=== PATIENT | female | born 1955 | race Caucasian/White ===

== ENCOUNTER → 2018-05-08 12:07 | Outpatient (CLI) | payer BC, SELFPAY ==
--- NOTE | 2018-05-08 | BRBX_PTH ---
PATIENT: ERICK MACKENZIE LOC: [facility] U#:[id number] AGE/SX: 70/F ROOM: RE05/08/[address]: Dr. Javed Lewis MD : 1955 BED: DIS: SPEC #: [id number] RECD: 05/08/18 14:38 STATUS: RJ OMID #: [id number] JESSEE: 05/08/18 00:[address]: Javed Lewis DEPT: SURGICAL PATHOLOGY RECD BY: Juan Miguel Goetz Tissues: Right breast, NOS Procedures: Surgery Specimen Level IV HEADER OPERATION: Ultrasound-guided right breast biopsy PRE-OP DIAGNOSIS: Abnormal mammogram TISSUE SUBMITTED: Right breast biopsy ISCHEMIC TIME: 3 minutes MICROSCOPIC DIAGNOSIS Right breast, ultrasound-guided core biopsy: Fragments of benign breast tissue, negative for atypia or malignancy. Focal mild chronic inflammation. SJ:hermelindo 05/11/18 COMMENT Correlation with clinical, radiologic findings and appropriate follow up are necessary. Rebiopsy is suggested if clinically indicated. MICROSCOPIC DESCRIPTION Slides are reviewed. GROSS DESCRIPTION Received is one container labeled with the patient's name and not further designated. The specimen consists of two elongated fragments of regalado-yellow fibroadipose tissue that in aggregate measure 2 x 0.2 x 0.1 cm. The entire specimen is submitted in one cassette. / SJ:rg 05/08/18 TC:3 [facility]: [id number]
--- OUTSIDE RECORDS SUMMARY | 2018-06-24 06:50 | XMS RPT_ITS ---
:1955 Author Organization [facility] Care Team Providers Name Role Phone OLDERTONJA (ARMORED CAR MESSENGER) Attending Unavailable OLDER, TONJA (ARMORED CAR MESSENGER) Referring Unavailable OLDER, TONJA (ARMORED CAR MESSENGER) Referring Unavailable ELIEZERJAVED WEEKS Attending Unavailable OLDER, TONJA (ARMORED CAR MESSENGER) Referring Unavailable ELIEZER, JAVED Schneider Attending Unavailable OLDER, TONJA (ARMORED CAR MESSENGER) Referring Unavailable Eliezer, Javed Attending Unavailable Eliezer, Javed Referring Unavailable PROBLEMS PROBLEMS DATE TYPE CONDITION / CODE ATTENDING STATUS SOURCE 05/05/2018 Active Mastodynia / NA Active [facility] N64.4(ICD-10) Main [place] Repository 05/05/2018 Active Diffuse cystic NA Active [facility] mastopathy of [facility] unspecified breast Repository / N60.19(ICD-10) PROCEDURES PROCEDURES No Procedure Records FoundRESULTS RESULTS PROGRESS Observed: 05/22/2018 Status: COMPLETED Source: [place] 1:57 PM [facility] REPOSITORY HNO ID: [id number] Author: Javed Martins Service: (none) Author Type: Physician Type: Progress Notes Filed: 05/22/2018 2:00 PM Note Text: FOLLOW UP VISIT - POST RIGHT ULTRASOUND GUIDED CORE BIOPSY NAME: Vy Mackenzie [facility] NO.: [id number] DATE OF SERVICE: 05/22/2018 : 1955 REFERRING PHYSICIAN: The patient is a 63 year old female with a finding of an abnormal mammogram. The patient has noticed breast discomfort on the right side more so than the left side for the past month. The patient had a mammogram with ultrasound on May 05, 2018 which demonstrated: IMPRESSION: INCOMPLETE: NEEDS ADDITIONAL IMAGING EVALUATION The asymmetry in the right breast is indeterminate. ?An ultrasound is recommended. LIMITED ULTRASOUND OF RIGHT BREAST: 05/05/2018 RESULT: Comparison is made to exam dated: ?[facility]. Color flow and real-time ultrasound of the right breast upper inner quadrant were performed. ?Vance scale images of the real-time examination were reviewed. There is a 1 cm irregular lesion in the right breast at 3 o'clock anterior depth. ?This irregular lesion is hypoechoic with posterior acoustic shadowing. There also is a 6 mm oval lesion in the right breast at 2 o'clock posterior depth. ?This oval lesion is hypoechoic. IMPRESSION: SUSPICIOUS OF MALIGNANCY The 1 cm irregular lesion in the right breast at 3 o'clock anterior depth is at a moderate suspicion for malignancy. ?An ultrasound guided biopsy is recommended. The 6 mm oval lesion in the right breast at 2 o'clock posterior depth is at a low suspicion for malignancy. ?An ultrasound guided biopsy is recommended. The patient denies a history of breast masses. She does not perform a self breast exam routinely. She notes no skin changes. She denies nipple discharge. She notes no axillary masses. She notes no first-degree family history of breast problems but does have a grandmother diagnosed with breast cancer. She notes no significant breast trauma or breast difficulties in the past. The patient has had 3 pregnancies. Her last mammogram was 2014. I performed a right side ultrasound guided core biopsy and aspiration of a benign-appearing breast cyst for her abnormal mammogram on May 07, 2018. The pathology returned as: MICROSCOPIC DIAGNOSIS Right breast, ultrasound-guided core biopsy: Fragments of benign breast tissue, negative for atypia or malignancy. Focal mild chronic inflammation. The patient notes slight bruising since the procedure. VITALS: Blood pressure 150/80, pulse 85, last menstrual period 07/20/2006, SpO2 97 %. On examination, the right side breast biopsy site is clean, dry, and intact. There is resolving bruising of the site. Assessment IMPRESSION: status post ultrasound guided core biopsy for right side breast asymmetry and shadowing. PLAN: If Vy notes any problems, she should contact me immediately. I reminded her about the importance of self - breast exam. I recommend she perform monthly self breast exams. If any palpable abnormalities, change in breast exam, or any difficulties are noted, she is to contact my office immediately. I generally recommend follow up unilateral mammogram and ultrasound 6 months following biopsy. Diagnoses: (R92.8) Abnormal finding on breast imaging (primary encounter diagnosis) Return to Clinic: The patient is instructed to follow- up with me in 6 months with mammogram and ultrasound prior to office visit. Javed Martins MD CNOV Observed: 05/22/2018 Status: COMPLETED Source: [place] 12:50 PM [facility] REPOSITORY Office Visit (GENSWS) VY MACKENZIE ([id number]) 1955 F Date Time Provider Department 05/22/18 12:50 PM JAVED MARTINS During your visit today, we recorded the following information about you: Pulse Blood pressure 85/minute 150/80 Javed Martins MD 05/22/2018 2:00 PM Signed FOLLOW UP VISIT - POST RIGHT ULTRASOUND GUIDED CORE BIOPSY NAME: Vy May Charles CLINIC NO.: [id number] DATE OF SERVICE: 05/22/2018 : 1955 REFERRING PHYSICIAN: The patient is a 63 year old female with a finding of an abnormal mammogram. The patient has noticed breast discomfort on the right side more so than the left side for the past month. The patient had a mammogram with ultrasound on May 05, 2018 which demonstrated: IMPRESSION: INCOMPLETE: NEEDS ADDITIONAL IMAGING EVALUATION The asymmetry in the right breast is indeterminate. ?An ultrasound is recommended. LIMITED ULTRASOUND OF RIGHT BREAST: 05/05/2018 RESULT: Comparison is made to exam dated: ?02[facility]. Color flow and real-time ultrasound of the right breast upper inner quadrant were performed. ?Vance scale images of the real-time examination were reviewed. There is a 1 cm irregular lesion in the right breast at 3 o'clock anterior depth. ?This irregular lesion is hypoechoic with posterior acoustic shadowing. There also is a 6 mm oval lesion in the right breast at 2 o'clock posterior depth. ?This oval lesion is hypoechoic. IMPRESSION: SUSPICIOUS OF MALIGNANCY The 1 cm irregular lesion in the right breast at 3 o'clock anterior depth is at a moderate suspicion for malignancy. ?An ultrasound guided biopsy is recommended. The 6 mm oval lesion in the right breast at 2 o'clock posterior depth is at a low suspicion for malignancy. ?An ultrasound guided biopsy is recommended. The patient denies a history of breast masses. She does not perform a self breast exam routinely. She notes no skin changes. She denies nipple discharge. She notes no axillary masses. She notes no first- degree family history of breast problems but does have a grandmother diagnosed with breast cancer. She notes no significant breast trauma or breast difficulties in the past. The patient has had 3 pregnancies. Her last mammogram was 2014. I performed a right side ultrasound guided core biopsy and aspiration of a benign-appearing breast cyst for her abnormal mammogram on May 07, 2018. The pathology returned as: MICROSCOPIC DIAGNOSIS Right breast, ultrasound-guided core biopsy: Fragments of benign breast tissue, negative for atypia or malignancy. Focal mild chronic inflammation. The patient notes slight bruising since the procedure. VITALS: Blood pressure 150/80, pulse 85, last menstrual period 07/20/2006, SpO2 97 %. On examination, the right side breast biopsy site is clean, dry, and intact. There is resolving bruising of the site. Assessment IMPRESSION: status post ultrasound guided core biopsy for right side breast asymmetry and shadowing. PLAN: If Vy notes any problems, she should contact me immediately. I reminded her about the importance of self - breast exam. I recommend she perform monthly self breast exams. If any palpable abnormalities, change in breast exam, or any difficulties are noted, she is to contact my office immediately. I generally recommend follow up unilateral mammogram and ultrasound 6 months following biopsy. Diagnoses: (R92.8) Abnormal finding on breast imaging (primary encounter diagnosis) Return to Clinic: The patient is instructed to follow- up with me in 6 months with mammogram and ultrasound prior to office visit. Javed Martins MD Referring Provider: TONJA PANDEY ([facility]) [[id number]] Allergies As of Date: 05/22/2018 Noted Allergy Reaction NICKEL 12/26/2015 2 - Rash Date Reviewed: 05/22/2018 Reviewed by: Javed Martins - Fully Assessed Reason for Visit: Post Op [174] Primary Visit Diagnosis:Abnormal finding on breast imaging [R92.8] Order(s):[facility] [[id number]] Order #: [id number] FUTURE US BREAST LTD RT [[id number]] Order #: [id number] FUTURE Prescriptions as of 05/22/2018 Sig: ASCORBIC ACID (VITAMIN C) 500* Take 1 tablet by mouth twice * DOCUSATE SODIUM 100 MG CAPSULE Take 1 capsule by mouth twice* ENOXAPARIN 40 MG/0.4 ML SUBCU* Inject 0.4 mL subcutaneously * FERROUS SULFATE 325 MG (65 MG* Take 1 tablet by mouth twice * * MULTIVITAMIN TABLET Take one(1) tablet daily. 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] INVALID FOR* Primary osteoarthritis of left hip [M16.12] INVALID FOR*03/21/2016 Follow-up and Disposition History Recorded Encounter Status:Closed by JAVED MARTINS MD on 05/22/18 PROGRESS Observed: 05/09/2018 Status: COMPLETED Source: [place] 10:09 AM [facility] [place] REPOSITORY [facility] ID: [id number] Author: Javed Martins Service: (none) Author Type: Physician Type: Progress Notes Filed: 05/09/2018 10:18 AM Note Text: HISTORY AND PHYSICAL - BREAST COMPLAINT Vy May Pack 1955 REFERRING PHYSICIAN: Tonja Pandey (Director Private), BONDING MACHINE TENDER.* CHIEF COMPLAINT: Right breast abnormal imaging HPI: The patient is a 63 year old female with a finding of an abnormal mammogram. The patient has noticed breast discomfort on the right side more so than the left side for the past month. The patient had a mammogram with ultrasound on May 05, 2018 which demonstrated: IMPRESSION: INCOMPLETE: NEEDS ADDITIONAL IMAGING EVALUATION The asymmetry in the right breast is indeterminate. ?An ultrasound is recommended. LIMITED ULTRASOUND OF RIGHT BREAST: 05/05/2018 RESULT: Comparison is made to exam dated: ?02/15/2015 [facility]. Color flow and real-time ultrasound of the right breast upper inner quadrant were performed. ?Vance scale images of the real-time examination were reviewed. There is a 1 cm irregular lesion in the right breast at 3 o'clock anterior depth. ?This irregular lesion is hypoechoic with posterior acoustic shadowing. There also is a 6 mm oval lesion in the right breast at 2 o'clock posterior depth. ?This oval lesion is hypoechoic. IMPRESSION: SUSPICIOUS OF MALIGNANCY The 1 cm irregular lesion in the right breast at 3 o'clock anterior depth is at a moderate suspicion for malignancy. ?An ultrasound guided biopsy is recommended. The 6 mm oval lesion in the right breast at 2 o'clock posterior depth is at a low suspicion for malignancy. ?An ultrasound guided biopsy is recommended. The patient denies a history of breast masses. She does not perform a self breast exam routinely. She notes no skin changes. She denies nipple discharge. She notes no axillary masses. She notes no first-degree family history of breast problems but does have a grandmother diagnosed with breast cancer. She notes no significant breast trauma or breast difficulties in the past. The patient has had 3 pregnancies. Her last mammogram was 2014. The patient is being seen by me today at the request of Tonja Pandey (Director Private), BONDING MACHINE TENDER.* my opinion and advice regarding right breast pain. PAST MEDICAL HISTORY Diagnosis Date - Menopausal and postmenopausal disorder 2007 PAST SURGICAL HISTORY Procedure Laterality Date - ASPIRATION BREAST CYST 09/16/05 U/S guided bilat breast cyst asp x 6 - BREAST BIOPSY NEEDLE LEFT 1996 L BREAST CYST - COLONOSCOP W/ OR W/O [facility] SPEC 10/10/14 polyp was not adenomatous - LIGATE FALLOPIAN TUBE Tubal ligation - TOTAL HIP REPLACEMENT Left 02/19/16 Hip replacement, total Current Outpatient Prescriptions: ascorbic acid, vitamin C, (VITAMIN C) 500 mg tablet Take 1 tablet by mouth twice daily with meals. Disp: 60 tablet Rfl: 0 docusate sodium (COLACE) 100 mg capsule Take 1 capsule by mouth twice daily. Disp: 60 capsule Rfl: 0 enoxaparin (LOVENOX) 40 mg/0.4 mL syrg Inject 0.4 mL subcutaneously q 24 HR. Disp: 12 Syringe Rfl: 0 ferrous sulfate 325 mg (65 mg iron) tablet Take 1 tablet by mouth twice daily with meals. Disp: 60 tablet Rfl: 0 MULTIVITAMIN TAB Take one(1) tablet daily. Disp: Rfl: 0 oxyCODONE immediate release (PERCOLONE) 5 mg immediate release tablet Take 1 tablet by mouth every 4 hours as needed for Pain. Disp: 90 tablet Rfl: 0 No current facility-administered medications for this visit. ALLERGIES: Nickel PERSONAL HISTORY: Social History Marital status: Spouse name: zaida Years of education: Number of children: 3 Social History Main Topics Smoking status: Former Smoker Packs/day: 0.25 Years: 35.00 Quit date: 05/07/2012 Smokeless tobacco: Never Used Alcohol use: No Drug use: No Sexual activity: Yes control/protection: Surgical Comment: BTL FAMILY HISTORY: FAMILY HISTORY Problem Relation Age of Onset - other (LUNG CANCER) Father - other (LYMPHOMA) Brother DOING WELL REVIEW OF SYMPTOMS: The review of systems data was entered by the nurse and reviewed by me Nursing Notes: Salomon Banerjee LPN 05/07/2018 10:22 AM Signed REVIEW OF SYSTEMS: General: The patient notes fatigue, denies weight loss, denies weight gain, denies feeling hot, and denies feelings of cold. Eyes: The patient denies glaucoma, denies eye injury/surgery, does not wear glasses or contacts. Ear/Nose/Throat: The patient denies allergies, denies hayfever, denies ear infections, and denies bloody noses. Cardiovascular: The patient denies chest pain, denies heart disease, denies high blood pressure,denies cardiac stent, denies prior heart attack, denies irregular heart beat, denies high cholesterol, denies poor circulation, denies heart failure, other cardiac issues, denies claudication, denies cold feet, denies peripheral arterial stent. Respiratory: The patient denies tuberculosis, denies pneumonia, denies frequent cough, denies pulmonary embolism, denies shortness of breath, and denies coughing up blood. Gastrointestinal: The patient denies difficulty swallowing, denies acid reflux, denies ulcers, denies vomiting, denies jaundice/hepatitis, denies gallbladder problems, denies black or tarry stools, denies hemorrhoids, denies bleeding from rectum, denies diverticulitis, denies constipation, denies diarrhea, denies loss of stool control, and denies hernias. Kidney/Bladder: The patient denies kidney stones, denies urine infections, and denies bloody urine. Skin: The patient denies a history of skin cancer, denies bleeding/changing moles, and denies a history of skin rash. Neurologic: The patient denies a history of epilepsy/convulsions, denies headaches, denies head/spinal injuries, and denies stroke/TIA. Psychiatric: The patient denies psychiatric medications, denies depression, and denies voices, denies substance abuse. Endocrine: The patient denies thyroid disorders, denies diabetes, and denies hormonal problems. Hematologic: The patient denies a history of bruising, denies bleeding, and denies anemia, denies blood clots. Infections: The patient denies a history of measles and mumps, denies rheumatic fever, and denies sexually transmitted diseases. Musculoskeletal: The patient denies back pain/injury, denies back problems, denies sciatica, denies knee/foot trouble, denies arthritis, or denies gout. When was patient's last Mammogram screening? 05/12 Last Colonoscopy: 10/07 Salomon Mitchell LPN 05/07/2018 11:16 AM Signed INFORMED CONSENT Vy Mackenzie Medical Record: [id number] Procedure:us guided right breast biopsy The risks, benefits and anticipated outcomes of the procedure, the risks and benefits of the alternatives to the procedure and the roles and tasks of the personnel to be involved were discussed with the patient and the patient consents to the procedure and agrees to proceed. I verify that I personally obtained yV Mackenzie's consent. Snow Mitchell LPN May 07, 2018 11:08 AM Dept of GENERAL SURGERY UN[employer]ERSAL PROTOCOL / SAFETY CHECKLIST Procedure to be performed: us guided right breast biopsy Sign in Communication: Completed Time Out: Team Confirms the Correct Patient, Correct Procedure, Correct Site and Site Marking, Correct Position (if applicable), Prep and Dry Time (if applicable). Time: 1109 am Affirmation of Time Out: YES Sign Out Discussion: Completed Snow Mitchell LPN PHYSICAL EXAMINATION: General: The patient is 63 year old female, well nourished, well hydrated in no acute distress. The patient is oriented to time, place, and person. VITALS: Blood pressure 146/78, pulse 111, temperature 36.8 ?C (98.2 ?F), temperature source Temporal Artery, height 165.1 cm (5' 5), weight 76.7 kg (169 lb 3.2 oz), last menstrual period 07/20/2006, SpO2 99 %. Body mass index is 28.16 kg/m?. HEENT: Normal cephalic, ataumatic, pupils are equally round, sclera are anicteric, mucous membranes are moist, oropharynx is clear. Neck has no masses, asymmetry or lymphadenopathy. Thyroid is unremarkable. Respiratory: Clear to auscultation and percussion. Normal respiratory excursion and pattern. Cardiac: Examination is regular rate and rhythm. Abdominal exam: Soft, nontender, with no palpable masses. No hepatosplenomegaly. No palpable hernias. Rectal exam: exam deferred Extremities: no clubbing, cyanosis or edema. No adenopathy. Breast: Visual inspection reveals no retractions, nipple inversion, or skin changes. Palpation of the right breast reveals no dominant or suspicious masses, but multiple benign-feeling nodules. Palpation of the left breast reveals no dominant or suspicious masses, but multiple benign-feeling nodules. Axillary exam demonstrates no suspicious masses in either the left or right axilla. There is no nipple discharge expressed from either the left or right breast. LABORATORY VALUES: As Noted RADIOLOGIC STUDIES: As Noted Intraoffice ultrasound was obtained. This demonstrated lesser shadowing than noted on the official ultrasound but this was felt to be the same area of abnormality. The deeper structure was felt to be likely a small cyst. PROCEDURE: Ultrasound Guided Cyst Aspiration The risks, benefits and anticipated outcomes of the procedure, the risks and benefits of the alternatives to the procedure, and the roles and tasks of the personnel to be involved, were discussed with the patient, and the patient consents to the procedure and agrees to proceed. After explaining the procedure and consent was obtained, Vy was positioned. The abnormality in the Right breast was identified by ultrasound. Local anesthetic was injected the skin. Am 18 gauge needle was inserted under ultrasound guidance. The cyst was aspirated completely. This fluid was not sent for cytology. A bandage was applied to the needle aspiration site. Vy tolerated the procedure well. PROCEDURE: Ultrasound Guided Core Breast Biopsy The risks, benefits and anticipated outcomes of the procedure, the risks and benefits of the alternatives to the procedure, and the roles and tasks of the personnel to be involved, were discussed with the patient, and the patient consents to the procedure and agrees to proceed. After explaining the procedure and consent was obtained,Vy was positioned. The abnormality in the right breast was identified by ultrasound. Lidocaine was injected in to the skin and a small stab incision was made. The bard core biopsy needle was inserted into the stab incision and advanced. Multiple core were obtained with ultrasound demonstrating targeting into the lesion and then below the lesion in the shadowing area. A marker clip was then placed via ultrasound guidance. Steristrips were applied to the incision. A bandage was applied to the needle site. Vy tolerated the procedure well. Assessment IMPRESSION: Status post benign-appearing cyst aspiration and core biopsy of right breast abnormality PLAN: The patient is to return for results of her ultrasound guided breast biopsy. If the patient notes bleeding from the biopsy site, she is to place pressure on the site. Discomfort from brusing can be managed with an ice pack or non steroidal analegics. Diagnoses: (R92.8) Abnormal finding on breast imaging (primary encounter diagnosis) My findings have been communicated to [facility] via shared medical record. This note will be forwarded to No primary care provider on file.. Return to Clinic: The patient is instructed to follow-up with me for pathology results. I understand the patient will be traveling so we will attempt to communicate the results via phone. Javed Martins MD BREAST BIOPSY Observed: 05/08/2018 Status: F Source: [place] 12:00 AM [facility] REPOSITORY Patient: VY MACKENZIE : 1955 (63/F) Acct Num: [id number] Phys: Javed Martins MD Unit Num: [id number] Loc: LABSPEC Specimen: [id number] Received: 05/08/18 - 1438 Spec Type: BREAST BX TISSUES 1 TISSUES: Right breast, NOS COMMENT Correlation with clinical, radiologic findings and appropriate follow up are necessary. Rebiopsy is suggested if clinically indicated. GROSS DESCRIPTION Received is one container labeled with the patient's name and not further designated. The specimen consists of two elongated fragments of regalado-yellow fibroadipose tissue that in aggregate measure 2 x 0.2 x 0.1 cm. The entire specimen is submitted in one cassette. / KARIN:hermelindo 05/08/18 TC:3 CPT: 00582 HEADER OPERATION: Ultrasound-guided right breast biopsy PRE-OP DIAGNOSIS: Abnormal mammogram TISSUE SUBMITTED: Right breast biopsy ISCHEMIC TIME: 3 minutes MICROSCOPIC DESCRIPTION Slides are reviewed. MICROSCOPIC DIAGNOSIS Right breast, ultrasound-guided core biopsy: Fragments of benign breast tissue, negative for atypia or malignancy. Focal mild chronic inflammation. SJ:hermelindo 05/11/18 Signed Ed Whitlock 05/11/18 <signature on file> Performed By: #### PBRBX #### [facility] [address] [place], [address] CNOV Observed: 05/07/2018 Status: COMPLETED Source: [place] 10:00 AM [facility] REPOSITORY Office Visit (GENSWS) VY MACKENZIE ([id number]) 1955 F Date Time Provider Department 05/07/18 10:00 AM JAVED MARTINS During your visit today, we recorded the following information about you: Temperature Pulse Blood pressure Weight 98.2 degrees 111/minute 146/78 76.7 kg Height 1.651 m Salomon Lavonne [facility] TECHNICIAN 05/07/2018 10:22 AM Signed REVIEW OF SYSTEMS: General: The patient notes fatigue, denies weight loss, denies weight gain, denies feeling hot, and denies feelings of cold. Eyes: The patient denies glaucoma, denies eye injury/surgery, does not wear glasses or contacts. Ear/Nose/Throat: The patient denies allergies, denies hayfever, denies ear infections, and denies bloody noses. Cardiovascular: The patient denies chest pain, denies heart disease, denies high blood pressure,denies cardiac stent, denies prior heart attack, denies irregular heart beat, denies high cholesterol, denies poor circulation, denies heart failure, other cardiac issues, denies claudication, denies cold feet, denies peripheral arterial stent. Respiratory: The patient denies tuberculosis, denies pneumonia, denies frequent cough, denies pulmonary embolism, denies shortness of breath, and denies coughing up blood. Gastrointestinal: The patient denies difficulty swallowing, denies acid reflux, denies ulcers, denies vomiting, denies jaundice/hepatitis, denies gallbladder problems, denies black or tarry stools, denies hemorrhoids, denies bleeding from rectum, denies diverticulitis, denies constipation, denies diarrhea, denies loss of stool control, and denies hernias. Kidney/Bladder: The patient denies kidney stones, denies urine infections, and denies bloody urine. Skin: The patient denies a history of skin cancer, denies bleeding/changing moles, and denies a history of skin rash. Neurologic: The patient denies a history of epilepsy/convulsions, denies headaches, denies head/spinal injuries, and denies stroke/TIA. Psychiatric: The patient denies psychiatric medications, denies depression, and denies voices, denies substance abuse. Endocrine: The patient denies thyroid disorders, denies diabetes, and denies hormonal problems. Hematologic: The patient denies a history of bruising, denies bleeding, and denies anemia, denies blood clots. Infections: The patient denies a history of measles and mumps, denies rheumatic fever, and denies sexually transmitted diseases. Musculoskeletal: The patient denies back pain/injury, denies back problems, denies sciatica, denies knee/foot trouble, denies arthritis, or denies gout. When was patient's last Mammogram screening? 05/12 Last Colonoscopy: 10/07 Salomon Mitchell LPN 05/07/2018 11:16 AM Signed INFORMED CONSENT Vy Mackenzie Medical Record: [id number] Procedure:us guided right breast biopsy The risks, benefits and anticipated outcomes of the procedure, the risks and benefits of the alternatives to the procedure and the roles and tasks of the personnel to be involved were discussed with the patient and the patient consents to the procedure and agrees to proceed. I verify that I personally obtained Vy Mackenzie's consent. Snow Mitchell LPN May 07, 2018 11:08 AM Dept of GENERAL SURGERY UNIVERSAL PROTOCOL / SAFETY CHECKLIST Procedure to be performed: us guided right breast biopsy Sign in Communication: Completed Time Out: Team Confirms the Correct Patient, Correct Procedure, Correct Site and Site Marking, Correct Position (if applicable), Prep and Dry Time (if applicable). Time: 1109 am Affirmation of Time Out: YES Sign Out Discussion: Completed Snow Mitchell LPN 05/07/2018 11:13 AM Signed The following instructions are important for you related to your office visit today with the [facility]. Instructions After OFFICE BASED BREAST BIOPSY Please do not take aspirin or other blood thinners for the next few days. After the procedure, Steri-Strips and a dressing will be placed on your small incision. The dressing may be removed in two to three days after the procedure. The Steri-Strips should be left in place until they fall off. If you have bleeding from the biopsy site, hold pressure with a clean gauze. If the bleeding continues, contact our office immediately. I recommend taking Advil or Tylenol for the discomfort. You should wear a comfortable but somewhat tight fitting bra. If you have significant bruising, an ice pack may improve your discomfort. Please make an appointment to return to our office after your trip. If you note any additional difficulties, questions, or concerns, you should contact our office immediately @ [phone] and ask to be transferred to the General Surgery department. Javed Martins MD 05/09/2018 10:18 AM Signed HISTORY AND PHYSICAL - BREAST COMPLAINT Vy Mackenzie 1955 REFERRING PHYSICIAN: Tonja Pandey (Director Private), KATARINA.* CHIEF COMPLAINT: Right breast abnormal imaging HPI: The patient is a 63 year old female with a finding of an abnormal mammogram. The patient has noticed breast discomfort on the right side more so than the left side for the past month. The patient had a mammogram with ultrasound on May 05, 2018 which demonstrated: IMPRESSION: INCOMPLETE: NEEDS ADDITIONAL IMAGING EVALUATION The asymmetry in the right breast is indeterminate. ?An ultrasound is recommended. LIMITED ULTRASOUND OF RIGHT BREAST: 05/05/2018 RESULT: Comparison is made to exam dated: ?02[facility]15/[facility]. Color flow and real-time ultrasound of the right breast upper inner quadrant were performed. ?Vance scale images of the real-time examination were reviewed. There is a 1 cm irregular lesion in the right breast at 3 o'clock anterior depth. ?This irregular lesion is hypoechoic with posterior acoustic shadowing. There also is a 6 mm oval lesion in the right breast at 2 o'clock posterior depth. ?This oval lesion is hypoechoic. IMPRESSION: SUSPICIOUS OF MALIGNANCY The 1 cm irregular lesion in the right breast at 3 o'clock anterior depth is at a moderate suspicion for malignancy. ?An ultrasound guided biopsy is recommended. The 6 mm oval lesion in the right breast at 2 o'clock posterior depth is at a low suspicion for malignancy. ?An ultrasound guided biopsy is recommended. The patient denies a history of breast masses. She does not perform a self breast exam routinely. She notes no skin changes. She denies nipple discharge. She notes no axillary masses. She notes no first- degree family history of breast problems but does have a grandmother diagnosed with breast cancer. She notes no significant breast trauma or breast difficulties in the past. The patient has had 3 pregnancies. Her last mammogram was 2014. The patient is being seen by me today at the request of Tonja Pandey (Irineo), KATARINA.* my opinion and advice regarding right breast pain. PAST MEDICAL HISTORY Diagnosis Date - Menopausal and postmenopausal disorder 2007 PAST SURGICAL HISTORY Procedure Laterality Date - ASPIRATION BREAST CYST 09/16/05 U/S guided bilat breast cyst asp x 6 - BREAST BIOPSY NEEDLE LEFT 1996 L BREAST CYST - COLONOSCOP W/ OR W/O [facility] SPEC 10/10/14 polyp was not adenomatous - LIGATE FALLOPIAN TUBE Tubal ligation - TOTAL HIP REPLACEMENT Left 02/19/16 Hip replacement, total Current Outpatient Prescriptions: ascorbic acid, vitamin C, (VITAMIN C) 500 mg tablet Take 1 tablet by mouth twice daily with meals. Disp: 60 tablet Rfl: 0 docusate sodium (COLACE) 100 mg capsule Take 1 capsule by mouth twice daily. Disp: 60 capsule Rfl: 0 enoxaparin (LOVENOX) 40 mg/0.4 mL syrg Inject 0.4 mL subcutaneously q 24 HR. Disp: 12 Syringe Rfl: 0 ferrous sulfate 325 mg (65 mg iron) tablet Take 1 tablet by mouth twice daily with meals. Disp: 60 tablet Rfl: 0 MULTIVITAMIN TAB Take one(1) tablet daily. Disp: Rfl: 0 oxyCODONE immediate release (PERCOLONE) 5 mg immediate release tablet Take 1 tablet by mouth every 4 hours as needed for Pain. Disp: 90 tablet Rfl: 0 No current facility-administered medications for this visit. ALLERGIES: Nickel PERSONAL HISTORY: Social History Marital status: Spouse name: zaida Years of education: Number of children: 3 Social History Main Topics Smoking status: Former Smoker Packs/day: 0.25 Years: 35.00 Quit date: 05/07/2012 Smokeless tobacco: Never Used Alcohol use: No Drug use: No Sexual activity: Yes control/protection: Surgical Comment: BTL FAMILY HISTORY: FAMILY HISTORY Problem Relation Age of Onset - other (LUNG CANCER) Father - other (LYMPHOMA) Brother DOING WELL REVIEW OF SYMPTOMS: The review of systems data was entered by the nurse and reviewed by me Nursing Notes: Salomon Lavonne WYNN 05/07/2018 10:22 AM Signed REVIEW OF SYSTEMS: General: The patient notes fatigue, denies weight loss, denies weight gain, denies feeling hot, and denies feelings of cold. Eyes: The patient denies glaucoma, denies eye injury/surgery, does not wear glasses or contacts. Ear/Nose/Throat: The patient denies allergies, denies hayfever, denies ear infections, and denies bloody noses. Cardiovascular: The patient denies chest pain, denies heart disease, denies high blood pressure,denies cardiac stent, denies prior heart attack, denies irregular heart beat, denies high cholesterol, denies poor circulation, denies heart failure, other cardiac issues, denies claudication, denies cold feet, denies peripheral arterial stent. Respiratory: The patient denies tuberculosis, denies pneumonia, denies frequent cough, denies pulmonary embolism, denies shortness of breath, and denies coughing up blood. Gastrointestinal: The patient denies difficulty swallowing, denies acid reflux, denies ulcers, denies vomiting, denies jaundice/hepatitis, denies gallbladder problems, denies black or tarry stools, denies hemorrhoids, denies bleeding from rectum, denies diverticulitis, denies constipation, denies diarrhea, denies loss of stool control, and denies hernias. Kidney/Bladder: The patient denies kidney stones, denies urine infections, and denies bloody urine. Skin: The patient denies a history of skin cancer, denies bleeding/changing moles, and denies a history of skin rash. Neurologic: The patient denies a history of epilepsy/convulsions, denies headaches, denies head/spinal injuries, and denies stroke/TIA. Psychiatric: The patient denies psychiatric medications, denies depression, and denies voices, denies substance abuse. Endocrine: The patient denies thyroid disorders, denies diabetes, and denies hormonal problems. Hematologic: The patient denies a history of bruising, denies bleeding, and denies anemia, denies blood clots. Infections: The patient denies a history of measles and mumps, denies rheumatic fever, and denies sexually transmitted diseases. Musculoskeletal: The patient denies back pain/injury, denies back problems, denies sciatica, denies knee/foot trouble, denies arthritis, or denies gout. When was patient's last Mammogram screening? 05/12 Last Colonoscopy: 10/07 Salomon Mitchell LPN 05/07/2018 11:16 AM Signed INFORMED CONSENT Vy Mackenzie Medical Record: [id number] Procedure:us guided right breast biopsy The risks, benefits and anticipated outcomes of the procedure, the risks and benefits of the alternatives to the procedure and the roles and tasks of the personnel to be involved were discussed with the patient and the patient consents to the procedure and agrees to proceed. I verify that I personally obtained Vy Mackenzie's consent. Snow Mitchell LPN May 07, 2018 11:08 AM Dept of GENERAL SURGERY UNIVERSAL PROTOCOL / SAFETY CHECKLIST Procedure to be performed: us guided right breast biopsy Sign in Communication: Completed Time Out: Team Confirms the Correct Patient, Correct Procedure, Correct Site and Site Marking, Correct Position (if applicable), Prep and Dry Time (if applicable). Time: 1109 am Affirmation of Time Out: YES Sign Out Discussion: Completed Snow Mitchell LPN PHYSICAL EXAMINATION: General: The patient is 63 year old female, well nourished, well hydrated in no acute distress. The patient is oriented to time, place, and person. VITALS: Blood pressure 146/78, pulse 111, temperature 36.8 ?C (98.2 ?F), temperature source Temporal Artery, height 165.1 cm (5' 5), weight 76.7 kg (169 lb 3.2 oz), last menstrual period 07/20/2006, SpO2 99 %. Body mass index is 28.16 kg/m?. HEENT: Normal cephalic, ataumatic, pupils are equally round, sclera are anicteric, mucous membranes are moist, oropharynx is clear. Neck has no masses, asymmetry or lymphadenopathy. Thyroid is unremarkable. Respiratory: Clear to auscultation and percussion. Normal respiratory excursion and pattern. Cardiac: Examination is regular rate and rhythm. Abdominal exam: Soft, nontender, with no palpable masses. No hepatosplenomegaly. No palpable hernias. Rectal exam: exam deferred Extremities: no clubbing, cyanosis or edema. No adenopathy. Breast: Visual inspection reveals no retractions, nipple inversion, or skin changes. Palpation of the right breast reveals no dominant or suspicious masses, but multiple benign-feeling nodules. Palpation of the left breast reveals no dominant or suspicious masses, but multiple benign- feeling nodules. Axillary exam demonstrates no suspicious masses in either the left or right axilla. There is no nipple discharge expressed from either the left or right breast. LABORATORY VALUES: As Noted RADIOLOGIC STUDIES: As Noted Intraoffice ultrasound was obtained. This demonstrated lesser shadowing than noted on the official ultrasound but this was felt to be the same area of abnormality. The deeper structure was felt to be likely a small cyst. PROCEDURE: Ultrasound Guided Cyst Aspiration The risks, benefits and anticipated outcomes of the procedure, the risks and benefits of the alternatives to the procedure, and the roles and tasks of the personnel to be involved, were discussed with the patient, and the patient consents to the procedure and agrees to proceed. After explaining the procedure and consent was obtained, Vy was positioned. The abnormality in the Right breast was identified by ultrasound. Local anesthetic was injected the skin. Am 18 gauge needle was inserted under ultrasound guidance. The cyst was aspirated completely. This fluid was not sent for cytology. A bandage was applied to the needle aspiration site. Vy tolerated the procedure well. PROCEDURE: Ultrasound Guided Core Breast Biopsy The risks, benefits and anticipated outcomes of the procedure, the risks and benefits of the alternatives to the procedure, and the roles and tasks of the personnel to be involved, were discussed with the patient, and the patient consents to the procedure and agrees to proceed. After explaining the procedure and consent was obtained,Vy was positioned. The abnormality in the right breast was identified by ultrasound. Lidocaine was injected in to the skin and a small stab incision was made. The bard core biopsy needle was inserted into the stab incision and advanced. Multiple core were obtained with ultrasound demonstrating targeting into the lesion and then below the lesion in the shadowing area. A marker clip was then placed via ultrasound guidance. Steristrips were applied to the incision. A bandage was applied to the needle site. Vy tolerated the procedure well. Assessment IMPRESSION: Status post benign-appearing cyst aspiration and core biopsy of right breast abnormality PLAN: The patient is to return for results of her ultrasound guided breast biopsy. If the patient notes bleeding from the biopsy site, she is to place pressure on the site. Discomfort from brusing can be managed with an ice pack or non steroidal analegics. Diagnoses: (R92.8) Abnormal finding on breast imaging (primary encounter diagnosis) My findings have been communicated to Deidra via shared medical record. This note will be forwarded to No primary care provider on file.. Return to Clinic: The patient is instructed to follow-up with me for pathology results. I understand the patient will be traveling so we will attempt to communicate the results via phone. Javed Martins MD Referring Provider: TONJA PANDEY ([facility]) [[id number]] Allergies As of Date: 05/07/2018 Noted Allergy Reaction NICKEL 12/26/2015 2 - Rash Date Reviewed: 05/07/2018 Reviewed by: Salomon Banerjee LPN - Fully Assessed Reason for Visit: Consult [173] Cmt: Consult Abn mammo Primary Visit Diagnosis:Abnormal finding on breast imaging [R92.8] Prescriptions as of 05/07/2018 Sig: ASCORBIC ACID (VITAMIN C) 500* Take 1 tablet by mouth twice * DOCUSATE SODIUM 100 MG CAPSULE Take 1 capsule by mouth twice* ENOXAPARIN 40 MG/0.4 ML SUBCU* Inject 0.4 mL subcutaneously * FERROUS SULFATE 325 MG (65 MG* Take 1 tablet by mouth twice * * MULTIVITAMIN TABLET Take one(1) tablet daily. 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 Instructions After OFFICE BASED BREAST BIOPSY Please do not take aspirin or other blood thinners for the next few days. After the procedure, Steri-Strips and a dressing will be placed on your small incision. The dressing may be removed in two to three days after the procedure. The Steri-Strips should be left in place until they fall off. If you have bleeding from the biopsy site, hold pressure with a clean gauze. If the bleeding continues, contact our office immediately. I recommend taking Advil or Tylenol for the discomfort. You should wear a comfortable but somewhat tight fitting bra. If you have significant bruising, an ice pack may improve your discomfort. Please make an appointment to return to our office after your trip. If you note any additional difficulties, questions, or concerns, you should contact our office immediately @ [phone] and ask to be transferred to the General Surgery department. Visit Notes: >> Salomon Banerjee LPN Sabi May 07, 2018 10:20 AM Status: Signed REVIEW OF SYSTEMS: General: The patient notes fatigue, denies weight loss, denies weight gain, denies feeling hot, and denies feelings of cold. Eyes: The patient denies glaucoma, denies eye injury/surgery, does not wear glasses or contacts. Ear/Nose/Throat: The patient denies allergies, denies hayfever, denies ear infections, and denies bloody noses. Cardiovascular: The patient denies chest pain, denies heart disease, denies high blood pressure,denies cardiac stent, denies prior heart attack, denies irregular heart beat, denies high cholesterol, denies poor circulation, denies heart failure, other cardiac issues, denies claudication, denies cold feet, denies peripheral arterial stent. Respiratory: The patient denies tuberculosis, denies pneumonia, denies frequent cough, denies pulmonary embolism, denies shortness of breath, and denies coughing up blood. Gastrointestinal: The patient denies difficulty swallowing, denies acid reflux, denies ulcers, denies vomiting, denies jaundice/hepatitis, denies gallbladder problems, denies black or tarry stools, denies hemorrhoids, denies bleeding from rectum, denies diverticulitis, denies constipation, denies diarrhea, denies loss of stool control, and denies hernias. Kidney/Bladder: The patient denies kidney stones, denies urine infections, and denies bloody urine. Skin: The patient denies a history of skin cancer, denies bleeding/changing moles, and denies a history of skin rash. Neurologic: The patient denies a history of epilepsy/convulsions, denies headaches, denies head/spinal injuries, and denies stroke/TIA. Psychiatric: The patient denies psychiatric medications, denies depression, and denies voices, denies substance abuse. Endocrine: The patient denies thyroid disorders, denies diabetes, and denies hormonal problems. Hematologic: The patient denies a history of bruising, denies bleeding, and denies anemia, denies blood clots. Infections: The patient denies a history of measles and mumps, denies rheumatic fever, and denies sexually transmitted diseases. Musculoskeletal: The patient denies back pain/injury, denies back problems, denies sciatica, denies knee/foot trouble, denies arthritis, or denies gout. When was patient's last Mammogram screening? 05/12 Last Colonoscopy: 10/07 Salomon Banerjee LPN >> Snow Mitchell LPN [facility] May 07, 2018 11:08 AM Status: Signed INFORMED CONSENT Vy Mackenzie Medical Record: [id number] Procedure:us guided right breast biopsy The risks, benefits and anticipated outcomes of the procedure, the risks and benefits of the alternatives to the procedure and the roles and tasks of the personnel to be involved were discussed with the patient and the patient consents to the procedure and agrees to proceed. I verify that I personally obtained Vy Mackenzie's consent. Snow Mitchell LPN May 07, 2018 11:08 AM Dept of GENERAL SURGERY UNIVERSAL PROTOCOL / SAFETY CHECKLIST Procedure to be performed: us guided right breast biopsy Sign in Communication: Completed Time Out: Team Confirms the Correct Patient, Correct Procedure, Correct Site and Site Marking, Correct Position (if applicable), Prep and Dry Time (if applicable). Time: 1109 am Affirmation of Time Out: YES Sign Out Discussion: Completed Snow Mitchell LPN Follow-up and Disposition History Recorded Encounter Status:Closed by JAVED MARTINS MD on 05/09/18 [facility]CO Observed: 05/05/2018 Status: COMPLETED Source: [place] 2:41 PM [facility] [place] REPOSITORY HNO ID: [id number] Author: Mammography Coordinator Service: (none) Author Type: Physician Type: Letter Filed: 05/06/2018 11:32 PM Note Text: May 05, 2018 PID: [id number] [place] [address] Dear Ms. Mackenzie, Your recent breast imaging exam on 05/05/2018 showed an abnormal area. At this time we recommend further evaluation. This does not necessarily mean that there is a serious problem in your breast, but it should not be ignored. Please contact your physician as soon as possible to discuss the results of this exam and decide what the next steps in your medical care should be. If you have already been notified of these findings, please disregard this letter. Thank you for allowing us to help in meeting your health care needs. Sincerely, Dr. Flores Interpreting Radiologist [facility] (Abnormal) CNCO Observed: 05/05/2018 Status: COMPLETED Source: [place] 2:41 PM [facility] REPOSITORY HNO ID: [id number] Author: Mammography Coordinator Service: (none) Author Type: Physician Type: Letter Filed: 05/06/2018 11:32 PM Note Text: May 05, 2018 PID: [id number] [place] [address] Dear Ms. Mackenzie, Your recent breast imaging exam on 05/05/2018 showed an abnormal area. At this time we recommend further evaluation. This does not necessarily mean that there is a serious problem in your breast, but it should not be ignored. Please contact your physician as soon as possible to discuss the results of this exam and decide what the next steps in your medical care should be. If you have already been notified of these findings, please disregard this letter. Thank you for allowing us to help in meeting your health care needs. Sincerely, Dr. Flores Interpreting Radiologist [facility] (Abnormal) PROGRESS Observed: 05/05/2018 Status: COMPLETED Source: [place] 12:32 PM [facility] REPOSITORY HNO ID: [id number] Author: Yolis Bundy Service: (none) Author Type: Network Internship Type: Progress Notes Filed: 05/05/2018 12:34 PM Note Text: Radiology Service Progress Note PATIENT NAME: Vy Mackenzie DATE OF SERVICE: May 05, 2018 TIME: 12:34 PM PATIENT IDENTITY VERIFICATION COMPLETED USING TWO (2) METHODS: Patient confirmed name verbally and Date of . PATIENT GENDER DATA: Female. status: : No status: N/A PATIENT RELEVANT IMPLANT DATA REVIEWED: Not Applicable RADIOLOGY DEPARTMENT: Ultrasound PERIPHERAL IV DATA: Not applicable SIGNED BY: YOLIS BUNDY RDMS RVT May 05, 2018 12:34 PM [facility] [employer] BREAST LTD Observed: 05/05/2018 Status: F Source: [place] RT 12:28 PM [facility] REPOS[facility]ORY * * *Final Report* * * DATE OF EXAM: May 05 2018 12:28PM [facility] [id number] - [employer] BREAST LTD RT / PROCEDURE REASON: multiple diagnoses * * * * Physician Interpretation * * * * #[id number] - [facility] DIAGNOSTIC MATTHEW #[id number] - [facility] US BREAST LTD RT BILATERAL DIGITAL DIAGNOSTIC MAMMOGRAM WITH CAD: 05/05/2018 HISTORY: Multiple Diagnoses\PAINFULL RIGHT BREAST\BILATERAL DX Multiple Diagnoses. RESULT: TECHNIQUE: The study was acquired using full field digital technology and interpreted from soft copy. Current study was also evaluated with a Computer Aided Detection (CAD). Comparison is made to exam dated: 02/15/2015 mammogram - [facility]. There are scattered fibroglandular elements in both breasts. There are benign calcifications in both breasts. There is an asymmetry in the right breast upper inner aspect middle depth. No other significant masses, calcifications, or other findings are seen in either breast. IMPRESSION: INCOMPLETE: NEEDS ADDITIONAL IMAGING EVALUATION The asymmetry in the right breast is indeterminate. An ultrasound is recommended. LIMITED ULTRASOUND OF RIGHT BREAST: 05/05/2018 RESULT: Comparison is made to exam dated: 02/15/2015 mammogram - [facility]. Color flow and real-time ultrasound of the right breast upper inner quadrant were performed. Vance scale images of the real-time examination were reviewed. There is a 1 cm irregular lesion in the right breast at 3 o'clock anterior depth. This irregular lesion is hypoechoic with posterior acoustic shadowing. There also is a 6 mm oval lesion in the right breast at 2 o'clock posterior depth. This oval lesion is hypoechoic. IMPRESSION: SUSPICIOUS OF MALIGNANCY The 1 cm irregular lesion in the right breast at 3 o'clock anterior depth is at a moderate suspicion for malignancy. An ultrasound guided biopsy is recommended. The 6 mm oval lesion in the right breast at 2 o'clock posterior depth is at a low suspicion for malignancy. An ultrasound guided biopsy is recommended. SUMMARY: Findings and recommendations discussed with the patient. Ordering physician called with results. Marily hurst/girma:05/05/2018 14:41:00 Multiple national specialty organizations have released breast cancer screening guidelines for women at average risk for developing breast cancer - guidelines that are based on both evidence and opinion, yet differ on when to start and how often to screen for breast cancer. With representation from Breast Imaging, Internal Medicine, Women's Health, Family Medicine, and Medical/Surgical Oncology, the [facility] has carefully reviewed the data and reached the following consensus: 1) All women should engage in shared decision-making with their providers to decide when to start and how often to screen; 2) All women should have the opportunity to start screening mammography at age 40; 3) For women ages 45-55, we recommend annual screening mammograms; 4) For women ages 55 and over, we support both the transition from an annual to a biennial interval if this aligns more with patient's values and preferences, or continuation with annual screening; 5) All women should discuss with their providers when to stop screening mammograms. Web Content Specialist(s): Cindy Delgado, RT(R)(M), [facility]; Yolis Bundy, [facility] letter sent: Abnormal OVERALL STUDY BIRADS: 4b Suspicious abnormality - intermediate suspicion of malignancy Shuttle Veneering Supervisor: Girma Transcribe Date/Time: May 05 2018 11:18A Dictated by : MARILY FLORES DO This examination was interpreted and the report reviewed and electronically signed by: MARILY FLORES DO on May 05 2018 2:41PM EST [id number] [facility] Observed: 05/05/2018 Status: F Source: [place] 11:28 AM [facility] REPOSITORY * * *Final Report* * * DATE OF EXAM: May 05 2018 11:28AM [place] 0620 - [facility] / PROCEDURE REASON: multiple diagnoses * * * * Physician Interpretation * * * * RESULT: #[id number] - [facility] #[id number] - [facility] US BREAST LTD RT BILATERAL DIGITAL DIAGNOSTIC MAMMOGRAM WITH CAD: 05/05/2018 HISTORY: Multiple Diagnoses\PAINFULL RIGHT BREAST\BILATERAL DX Multiple Diagnoses. RESULT: TECHNIQUE: The study was acquired using full field digital technology and interpreted from soft copy. Current study was also evaluated with a Computer Aided Detection (CAD). Comparison is made to exam dated: 02/15/2015 mammogram - [facility]. There are scattered fibroglandular elements in both breasts. There are benign calcifications in both breasts. There is an asymmetry in the right breast upper inner aspect middle depth. No other significant masses, calcifications, or other findings are seen in either breast. IMPRESSION: INCOMPLETE: NEEDS ADDITIONAL IMAGING EVALUATION The asymmetry in the right breast is indeterminate. An ultrasound is recommended. LIMITED ULTRASOUND OF RIGHT BREAST: 05/05/2018 RESULT: Comparison is made to exam dated: 02/15/2015 mammogram - [facility]. Color flow and real-time ultrasound of the right breast upper inner quadrant were performed. Vance scale images of the real-time examination were reviewed. There is a 1 cm irregular lesion in the right breast at 3 o'clock anterior depth. This irregular lesion is hypoechoic with posterior acoustic shadowing. There also is a 6 mm oval lesion in the right breast at 2 o'clock posterior depth. This oval lesion is hypoechoic. IMPRESSION: SUSPICIOUS OF MALIGNANCY The 1 cm irregular lesion in the right breast at 3 o'clock anterior depth is at a moderate suspicion for malignancy. An ultrasound guided biopsy is recommended. The 6 mm oval lesion in the right breast at 2 o'clock posterior depth is at a low suspicion for malignancy. An ultrasound guided biopsy is recommended. SUMMARY: Findings and recommendations discussed with the patient. Ordering physician called with results. Marily hurst/girma:05/05/2018 14:41:00 Multiple national specialty organizations have released breast cancer screening guidelines for women at average risk for developing breast cancer - guidelines that are based on both evidence and opinion, yet differ on when to start and how often to screen for breast cancer. With representation from Breast Imaging, Internal Medicine, Women's Health, Family Medicine, and Medical/Surgical Oncology, the [facility] has carefully reviewed the data and reached the following consensus: 1) All women should engage in shared decision-making with their providers to decide when to start and how often to screen; 2) All women should have the opportunity to start screening mammography at age 40; 3) For women ages 45-55, we recommend annual screening mammograms; 4) For women ages 55 and over, we support both the transition from an annual to a biennial interval if this aligns more with patient's values and preferences, or continuation with annual screening; 5) All women should discuss with their providers when to stop screening mammograms. Web Content Specialist(s): Cindy Delgado, RT(R)(M), [facility]; Yolis Bundy, [facility] letter sent: Abnormal OVERALL STUDY BIRADS: 4b Suspicious abnormality - intermediate suspicion of malignancy Shuttle Veneering Supervisor: Girma Transcribe Date/Time: May 05 2018 11:18A Dictated by: MARILY FLORES DO This examination was interpreted and the report reviewed and electronically signed by: MARILY FLORES DO on May 05 2018 2:41PM EST [id number] Observed: 04/28/2018 Status: COMPLETED Source: [place] 11:49 AM [facility] REPOSITORY O ID: [id number] Author: Tonja (Director Private) Older Service: (none) Author Type: Nurse Practitioner Type: Progress Notes Filed: 04/28/2018 1:38 PM Note Text: CC: right breast pain HPI Vy Mackenzie is a 63 year old female who presents today for right lateral breast pain x 2 weeks. Constant, nagging pain. Has very lumpy breasts. No new lumps, swelling, nipple discharge, rashes, skin changes. No fever, chills, body aches, nausea. Treated with Advil x 2 without any relief but heat does help. Last mammogram in 2014 was normal. History of fibrocystic breast disease with previous aspiration of cysts for pain relief. Last seen by surgery in 2005, surgical treatment discussed but declined at that time. Advised to follow-up in one year. She had no further issues with breast pain, did not follow-up. REVIEW OF SYSTEMS See HPI PAST MEDICAL HISTORY Diagnosis Date - Menopausal and postmenopausal disorder 2007 PAST SURGICAL HISTORY Procedure Laterality Date - ASPIRATION BREAST CYST 09/16/05 U/S guided bilat breast cyst asp x 6 - BREAST BIOPSY NEEDLE LEFT 1996 L BREAST CYST - COLONOSCOP W/ OR W/O [facility] SPEC 10/10/14 polyp was not adenomatous - LIGATE FALLOPIAN TUBE Tubal ligation - TOTAL HIP REPLACEMENT Left 02/19/16 Hip replacement, total ALLERGIES Nickel MEDICATIONS oxyCODONE immediate release (PERCOLONE) 5 mg immediate release tablet Take 1 tablet by mouth every 4 hours as needed for Pain. enoxaparin (LOVENOX) 40 mg/0.4 mL syrg Inject 0.4 mL subcutaneously q 24 HR. ferrous sulfate 325 mg (65 mg iron) tablet Take 1 tablet by mouth twice daily with meals. docusate sodium (COLACE) 100 mg capsule Take 1 capsule by mouth twice daily. ascorbic acid, vitamin C, (VITAMIN C) 500 mg tablet Take 1 tablet by mouth twice daily with meals. MULTIVITAMIN TAB Take one(1) tablet daily. FAMILY HISTORY Problem Relation Age of Onset - other (LYMPHOMA [Other]) Brother DOING WELL - other (LUNG CANCER [Other]) Father Social History Substance Use Topics - Smoking status: Former Smoker Packs/day: 0.25 Years: 35.00 - Smokeless tobacco: Never Used Comment: QUIT SMOKING 3-4 YEARS AGO - Alcohol use No PHYSICAL EXAM BP 130/88 Pulse 73 Temp 36.2 ?C (97.2 ?F) (Temporal Artery) Resp 16 Wt 76.2 kg (168 lb) LMP 07/20/2006 SpO2 97% BMI 27.96 kg/m? General Appearance: well appearing, in no acute distress, alert Breast: Tenderness with palpation of right breast: bilateral lower quadrants and upper outer quadrant. Breasts symmetric, no swelling, no induration, no dominant or suspicious mass, no skin or nipple changes, no axillary adenopathy ASSESSMENT/PLAN: 1. Breast pain, right - ICD9: 611.71, ICD10: N64.4 (primary diagnosis) Pain likely secondary to known fibrocystic breast disease Work-up with: - [facility] - US BREAST LTD RT Discussed symptomatic treatment including consistent use of NSAID's x 3 to 4 days, moist heat, ice, sports bra. Follow-up pending results of work-up 2. Fibrocystic breast disease (FCBD), unspecified laterality - ICD9: 610.1, ICD10: N60.19 As above - [facility] - US BREAST LTD RT Prescription instructions reviewed with patient as applicable. Potential red flag symptoms discussed with the patient. Reviewed appropriate action plan to take if red flag symptoms occur. Patient agreeable to treatment plan. Tonja Pandey APRN.CNP CNOV Observed: 04/28/2018 Status: COMPLETED Source: [place] 11:40 AM [facility] REPOSITORY Office Visit (INTMWS) VY MACKENZIE ([id number]) 1955 F Date Time Provider Department 04/28/18 11:40 AM TONJA PANDEY (IRINEO) INTMWS During your visit today, we recorded the following information about you: Temperature Pulse Respiration Blood pressure 97.2 degrees 73/minute 16/minute 130/88 Weight 76.2 kg Tonja Pandey APRN.CNP 04/28/2018 1:38 PM Signed CC: right breast pain HPI Vy Mackenzie is a 63 year old female who presents today for right lateral breast pain x 2 weeks. Constant, nagging pain. Has very lumpy breasts. No new lumps, swelling, nipple discharge, rashes, skin changes. No fever, chills, body aches, nausea. Treated with Advil x 2 without any relief but heat does help. Last mammogram in 2014 was normal. History of fibrocystic breast disease with previous aspiration of cysts for pain relief. Last seen by surgery in 2005, surgical treatment discussed but declined at that time. Advised to follow-up in one year. She had no further issues with breast pain, did not follow-up. REVIEW OF SYSTEMS See HPI PAST MEDICAL HISTORY Diagnosis Date - Menopausal and postmenopausal disorder 2007 PAST SURGICAL HISTORY Procedure Laterality Date - ASPIRATION BREAST CYST 09/16/05 U/S guided bilat breast cyst asp x 6 - BREAST BIOPSY NEEDLE LEFT 1996 L BREAST CYST - COLONOSCOP W/ OR W/O [facility] SPEC 10/10/14 polyp was not adenomatous - LIGATE FALLOPIAN TUBE Tubal ligation - TOTAL HIP REPLACEMENT Left 02/19/16 Hip replacement, total ALLERGIES Nickel MEDICATIONS oxyCODONE immediate release (PERCOLONE) 5 mg immediate release tablet Take 1 tablet by mouth every 4 hours as needed for Pain. enoxaparin (LOVENOX) 40 mg/0.4 mL syrg Inject 0.4 mL subcutaneously q 24 HR. ferrous sulfate 325 mg (65 mg iron) tablet Take 1 tablet by mouth twice daily with meals. docusate sodium (COLACE) 100 mg capsule Take 1 capsule by mouth twice daily. ascorbic acid, vitamin C, (VITAMIN C) 500 mg tablet Take 1 tablet by mouth twice daily with meals. MULTIVITAMIN TAB Take one(1) tablet daily. FAMILY HISTORY Problem Relation Age of Onset - other (LYMPHOMA [Other]) Brother DOING WELL - other (LUNG CANCER [Other]) Father Social History Substance Use Topics - Smoking status: Former Smoker Packs/day: 0.25 Years: 35.00 - Smokeless tobacco: Never Used Comment: QUIT SMOKING 3-4 YEARS AGO - Alcohol use No PHYSICAL EXAM BP 130/88 Pulse 73 Temp 36.2 ?C (97.2 ?F) (Temporal Artery) Resp 16 Wt 76.2 kg (168 lb) LMP 07/20/2006 SpO2 97% BMI 27.96 kg/m? General Appearance: well appearing, in no acute distress, alert Breast: Tenderness with palpation of right breast: bilateral lower quadrants and upper outer quadrant. Breasts symmetric, no swelling, no induration, no dominant or suspicious mass, no skin or nipple changes, no axillary adenopathy ASSESSMENT/PLAN: 1. Breast pain, right - ICD9: 611.71, ICD10: N64.4 (primary diagnosis) Pain likely secondary to known fibrocystic breast disease Work-up with: - [facility] - US BREAST LTD RT Discussed symptomatic treatment including consistent use of NSAID's x 3 to 4 days, moist heat, ice, sports bra. Follow-up pending results of work-up 2. Fibrocystic breast disease (FCBD), unspecified laterality - ICD9: 610.1, ICD10: N60.19 As above - [facility] - US BREAST LTD RT Prescription instructions reviewed with patient as applicable. Potential red flag symptoms discussed with the patient. Reviewed appropriate action plan to take if red flag symptoms occur. Patient agreeable to treatment plan. Tonja Pandey APRN.ARMORED CAR MESSENGER Referring Provider: SELF [[id number]] Allergies As of Date: 04/28/2018 Noted Allergy Reaction NICKEL 12/26/2015 2 - Rash Date Reviewed: 04/28/2018 Reviewed by: Vernell N [employer] - Fully Assessed Primary Visit Diagnosis:Breast pain, right [N64.4] Other Visit Diagnosis:Fibrocystic breast disease (FCBD), unspecified laterality [N60.19] Order(s):[facility] [[id number]] Order #: [id number] FUTURE BREAST LTD RT [[id number]] Order #: [id number] FUTURE Prescriptions as of 04/28/2018 Sig: OXYCODONE 5 MG TABLET Take 1 tablet by mouth every * ENOXAPARIN 40 MG/0.4 ML SUBCU* Inject 0.4 mL subcutaneously * FERROUS SULFATE 325 MG (65 MG* Take 1 tablet by mouth twice * DOCUSATE SODIUM 100 MG CAPSULE Take 1 capsule by mouth twice* ASCORBIC ACID (VITAMIN C) 500* Take 1 tablet by mouth twice * * MULTIVITAMIN TABLET Take one(1) tablet daily. 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] INVALID FOR* Primary osteoarthritis of left hip [M16.12] INVALID FOR*03/21/2016 Encounter Status:Closed by TONJA PANDEY CNP on 04/28/18 ALLERGIES ALLERGIES DATE TYPE / CODE NAME / CODE REACTION SEVERITY SOURCE 12/26/2015 DRUG NICKEL RASH [facility] INGREDI/[id number] [facility] [address](SNOMED Repository CT) ENCOUNTERS ENCOUNTERS ADMIT/DISCHARGE ACCOUNT ADMITTING ENCOUNTER LOCATION SOURCE NUMBER CLASS 05/22/2018/05/25/20 [id number] Ambulatory [address] Repository 05/08/2018 [id number] [facility] 05/07/2018/05/11/20 [id number] Ambulatory [address] Repository 05/05/2018/05/05/20 [id number] Ambulatory [address] Repository 05/05/2018/05/05/20 [id number] Ambulatory [address] Repository 04/28/2018/04/29/20 [id number] Ambulatory [address] Repository PAYERS PAYERS ENCOUNTER GUARANTOR PAYER SUBSCRIBER SOURCE 05/08/2018 DARYL CARRERAB: Robert [id number] Insurance:ANTHEMPolic [id number] [facility] JESUS wi y Number: [facility] [id number]: ([id number] [id number] Repository [phone] () Date:[id number] [facility] [id number], [place] [address]LO: 05/08/2018 Secondary NOT GIVENUNK Burney Insurance:SELF PAY [facility] Hospital Number: Effective Repository Date:2018-05-08
== END ==
PROVIDERS: Referring Provider Surgery; Visit Provider Surgery
DX: R92.8 Other abnormal and inconclusive findings on diagnostic imaging of breast (principal)
CPT/HCPCS: 88305

== ENCOUNTER → 2020-03-06 18:02 | Outpatient (CLI) | payer MEDICARE, BC, SELFPAY | PROVIDERS: PCP Family Medicine; Referring Provider Registered Nurse; Visit Provider Registered Nurse | DX: U07.1 COVID-19 (principal) | CPT/HCPCS: 87635; C9803; U0003 ==

== ENCOUNTER 2020-08-01 07:29 | Outpatient (RCR) | payer MEDICARE, SELFPAY ==
[2020-08-01] MEDS: COVID-19 VACC, MRNA(PFIZER)/PF 30 MCG/0.3 ML SYRINGE IM (08:08)
[2020-08-22] MEDS: COVID-19 VACC, MRNA(PFIZER)/PF 30 MCG/0.3 ML SYRINGE IM (07:55)
== END 2020-10-31 23:59 ==
LOC: IMMUN 07:29
PROVIDERS: PCP Family Medicine; Referring Provider Family Medicine; Visit Provider Family Medicine
DX: Z23 Encounter for immunization (principal)
CPT/HCPCS: 0001A; 0002A; 91300

== ENCOUNTER 2024-02-02 17:55 | Emergency (ER) | payer SELFPAY ==
[2024-02-02 17:55] VITALS: BP 120/81; PULSE 85; RESP 19; TEMP 36.2; O2SAT 97; BMI 25.6
[2024-02-02 19:55] VITALS: BP 129/75
[2024-02-02] MEDS: 0.9% Normal Saline (500mL Bag) 500 ML 1000 ML IV (20:18)
[2024-02-02 20:19] LABS: Absolute Neutrophil Count 3.4 X10^3/uL (2.0-7.7); Basophil# 0.02 X10^3/uL; Basophil% 0.4 % (0-1); Eosinophil# 0.09 X10^3/uL; Eosinophils% 1.8 % (0-5); Hemoglobin 10.1 g/dL (12.0-15.0); Lymphocyte % 16.3 % (19-41); Mean Corp Hgb Conc 32.6 g/dL (32-36); Mean Corpuscular Hgb 33.2 pg (27.0-32.0); Monocyte# 0.56 X10^3/uL; Monocyte% 11.4 % (0-10); NRBC Flagged by Analyzer 0 % (0-5); Neutrophil # 3.42 X10^3/uL (2.7-7.7); Neutrophil % 69.9 % (47-70); POSITIVE MORPHOLOGY YES; Platelet Count 117 K/mm3 (150-450); RBC Distribution Width CV 18.7 % (11.6-14.6); Red Blood Count 3.04 M/mm3 (4.2-5.4); White Blood Count 4.9 K/mm3 (4.4-11.0)
[2024-02-02 20:39] LABS: Anion Gap 9 (5-15); BUN 15 mg/dL (7-18); BUN/Creat Ratio 20.8 RATIO (10-20); Chloride 105 mmol/L (98-107); Creatinine, Serum 0.72 mg/dL (0.55-1.02); EST Glomerular Filtration Rate 85 mL/min (>60); Est Glom Filt Rate - Afr Amer 103 mL/min (>60); Estimated Creatinine Clearance 66.04 ml/min; Glucose 95 mg/dL (74-106); Potassium 3.4 mmol/L (3.5-5.1); Sodium Level 139 mmol/L (136-145)
--- NOTE | 2024-02-02 20:40 | EX.ED.DYSGE1 ---
HPI History of Present Illness Chief Complaint: Other, Pain/Inj Informant: patient and spouse/S.O. Narrative Narrative: Presents to the ED for CT scan to rule out postop complications. History of ovarian cancer diagnosed 3 years ago with hysterectomy and oophorectomies. She still has the cancer in her lymph nodes. She is followed by [facility]. January 19 less than 2 weeks ago had a lymph node biopsy lumbar approach into her pelvis. She since then noted continued vague pain worse when she is walking. She has been on anticoagulation medicines. She discussed with the interventional radiologist today who referred her to the nearest ED for CT scan to rule out hematoma. She has no fevers or chills. Denies abdominal pain. However states pain rates her back to her groin. She states she has had a known kidney stone also. 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 PFSH PFSH Allergy/AdvReac Type Severity Reaction Status Date / Time No Known Allergies Allergy Verified 02/02/24 17:59 Social History Smoking Status: Never smoker ROS ROS ED Constitutional Constitutional ED: Denies chills, fever(s) or sweats Eyes Eyes: Denies change in vision ENT ENT ED: Denies dysphagia or sore throat Cardiovascular Cardiovascular: Denies chest pain, leg edema, palpitations or racing heartbeat Respiratory/Chest Respiratory/Chest: Denies cough, dyspnea or dyspnea on exertion Gastrointestinal Gastrointestinal: Denies abdominal pain, diarrhea, nausea or vomiting Genitourinary Genitourinary ED: Denies dysuria, hematuria or urinary frequency Musculoskeletal Musculoskeletal: Reports back pain; Denies extremity pain or neck pain Integumentary Denies rash or wounds Neurologic Neurologic: Denies headache(s), paresthesias or weakness EXAM Physical Exam Const Vital Signs: 02/02/24 17:55 02/02/24 19:55 02/02/24 21:00 Temperature 97.2 F L Temperature Source Temporal Pulse Rate 85 82 Respiratory Rate 19 H 16 Blood Pressure 120/81 H 129/75 H 110/78 Blood Pressure Mean 94 93 88 Pulse Ox 97 98 Oxygen Delivery Method Room Air Room Air 02/02/24 22:46 Temperature 97.9 F Temperature Source Pulse Rate 80 Respiratory Rate 16 Blood Pressure 122/61 H Blood Pressure Mean 81 Pulse Ox 99 Oxygen Delivery Method Positive well nourished and well developed General Appearance ED: well developed and NAD HEENT Reports moist mucous membranes normocephalic and atraumatic Eyes EOMs intact bilaterally and conjunctivae normal General Eye ED: Yes normal appearance of both eyes Neck no lymphadenopathy and supple General: Negative for tenderness Chest Wall Chest: Negative for tenderness Resp normal respiratory effort and normal air movement Effort and Inspection: symmetric chest movement; Negative for respiratory distress Cardio regular rate, regular rhythm and no murmurs Peripheral Pulses: pulses 2+ throughout GI normal to inspection, nondistended, normoactive bowel sounds and non-tender Palpation: Negative for guarding or rebound tenderness present Back/Spine no CVA tenderness and no thoracic nor lumbar tenderness Back/Spine Narrative: Puncture noted lumbar above the iliac crest posteriorly. No drainage streaking or induration is noted. Extremity normal to inspection General Extremety ED: Negative for edema or tenderness General Extremity: Negative for edema Neuro oriented x3 and no sensory deficits noted Sensorium / Orientation: awake and alert Skin no rashes or lesions noted and no wounds MDM MDM MDM Narrative Medical decision making narrative: Interventions / MDM: Differential diagnosis: History of ovarian cancer with metastasis, Diagnosis considered but do not suspect: Obstructive kidney stone, hematoma, abscess however CT was negative. My EKG interpretation: N/A Imaging independently reviewed and interpreted by myself:CT abdomen pelvis IV contrast. Multiple Lymphadenopathy findings, no abscess no hematoma. Nonobstructing renal stone. External documents reviewed: N/A Test considered but not ordered:N/A ED course: Patient nontoxic. She is postprocedure 13 days ago. Sent here to rule out complications. IV established with basic labs. CT abdomen pelvis IV contrast ordered for further evaluation. Fluids ordered. She declines any pain medications. Resolved with full lymphadenopathy findings with largest diameter of 2.5 cm. Patient reports she had a CT scan prior to her biopsy on the 26 reporting that her lymph nodes were strengthening compared to previous. There is no old for comparison the symptoms here. There is no hematoma, no abscess. Given The report along with the images on a disk. Edition she follows [facility] at [facility] department transmit her images up to leaving clinic so that her physicians can review this. She is discharged outpatient follow-up. All questions were answered. Re-evaluation: stable Disposition discussed with patient/family/significant other: Patient and significant other Case discussed with consulting clinician: N/A This note was generated with [employer] dictation software. It may contain incorrect words, spelling, and punctuation that were not noted in checking the note before signing. Lab Data Attestation: I reviewed the patient's lab results. Labs: Laboratory Results - last 24 hr 02/02/24 20:10 WBC 4.9 RBC 3.04 L Hgb 10.1 L Hct 31.0 L MCV 102.0 H MCH 33.2 H MCHC 32.6 RDW Std Deviation 69.0 H RDW Coeff of Heena 18.7 H Plt Count 117 L MPV 10.0 Immature Gran % (Auto) 0.200 Neut % (Auto) 69.9 Lymph % (Auto) 16.3 L Whitley % (Auto) 11.4 H Eos % (Auto) 1.8 Baso % (Auto) 0.4 Absolute Neuts (auto) 3.4 Absolute Lymphs (auto) 0.80 L Nucleated RBC % 0 Platelet Estimate SLT DEC RBC Morphology N CHROM Anisocytosis RARE Macrocytosis RARE PT 14.0 INR 1.1 APTT 37.4 H Sodium 139 Potassium 3.4 L Chloride 105 Carbon Dioxide 25.0 Anion Gap 9 BUN 15 Creatinine 0.72 Estim Creat Clear Calc 66.04 Est GFR (MDRD) Af Amer 103 Est GFR (MDRD) Non-Af 85 BUN/Creatinine Ratio 20.8 H Glucose 95 Calcium 10.0 Radiography Diagnostic Testing: Clinical Impression(s) from Imaging Studies Abdomen/Pelvis CT 02/02/24 21:06 IMPRESSION: 1. Circumferential thickening of the ascending colon, this is nonspecific in appearance. Area of inflammatory changes versus circumferential mass without obstruction are considerations. 2. No bowel obstruction or diverticulitis. 3. No evidence of appendicitis. 4. Coarse nonobstructing calcification in the lower pole of the LEFT kidney. No evidence of obstructive uropathy. 5. Hepatic steatosis without hepatic masses. No evidence cholelithiasis. 6. Extensive retroperitoneal and mesenteric adenopathy, findings are suspicious of metastatic disease. RIGHT pelvic sidewall adenopathy also present. 7. No pulmonary nodules or masses identified in the visualized lower lungs. 8. No mass is identified involving the adrenal glands. Electronically Signed: Javed Moore MD at 22:04 EDT , Discharge Plan Triage Chief Complaint: Other, Pain/Inj ED Provider: Cheko Harley Dx/Rx/DC Orders Clinical Impression: Post-op pain, History of ovarian cancer, LAD (lymphadenopathy), intra-abdominal Instructions: Lymphadenopathy Primary Care Provider: EZEKIEL BEY Referrals: Jose Harris MD [Non-Staff] - 1 Week Activity Restrictions/Additional Instructions: No hematoma or abscess seen on CT with your post biopsy. You have extensive lymphadenopathy noted in your report as gotten smaller from your last scan. Cannot compare with your last scan today. Your image was transmitted up to [facility] along with you receiving a disc to take to your oncology team. Print Language: Azerbaijani Disposition Disposition: Home, Self Care Discharge Date/Time: 02/02/24 22:47
[2024-02-02 20:51] LABS: Differential Indicated SCAN CRITERIA MET
[2024-02-02 20:52] LABS: International Normalized Ratio 1.1; Partial Thromboplast Time 37.4 Seconds (24.1-36.2)
[2024-02-02 21:00] VITALS: BP 110/78; PULSE 82; RESP 16; O2SAT 98
--- NOTE | 2024-02-02 21:06 | CT_ITS ---
INDICATION: flank pain -- Left flank pain to the groin, biopsy 01/19 EXAMINATION: CT ABDOMEN AND PELVIS with CONTRAST - CT Abdomen And Pelvis W/ Contrast Injection TECHNIQUE: Multiple axial images were obtained of the abdomen and pelvis following administration of IV contrast. Planar reconstructions obtained. A radiation dose optimization technique was used for this scan. RADIATION DOSAGE (If Supplied By Facility): CTDIvol = ( 10.65 ) mGy, DLP = ( 619.11 ) mGycm IV Contrast dosage and agent: 100 mL [id number] Oral contrast: None. COMPARISON: No pertinent previous studies for comparison.. FINDINGS: LOWER CHEST: 1. Lung bases are clear. 2. No cardiomegaly or pericardial effusion. 3. No significant coronary vascular calcifications. HEPATOBILIARY: Liver: The liver is homogeneous and shows no evidence of focal lesion. Diffuse hepatic steatosis is noted. Gallbladder: The gallbladder is unremarkable. Pancreas: Pancreas is normal size configuration and density. No mass is noted. Spleen: The spleen is homogeneous and normal in size. . BOWEL: Stomach: The stomach is normal in size configuration, no evidence of focal masses, abnormal calcifications. No hiatal hernia noted. Bowel: Large small bowel loops have normal configuration. No definitive mass lesions noted however circumferential thickening of the ascending colon is present (series 2: Image 66). No other distinct masses noted. Scattered diverticula are present without evidence diverticulitis. Appendix: The visualized appendix has normal appearance.: GENITOURINARY: Adrenals: Both adrenal glands are normal in size. Kidneys: Kidneys appear symmetric in size. There is a coarse nonobstructing calcification in the lower pole of the LEFT kidney measuring 9 x 6 mm. No ureteral stones are identified. There is no hydronephrosis or surrounding fluid. Bladder: Normal Pelvic organs: Postoperative changes of prior hysterectomy. RETROPERITONEUM: Scattered aortic calcifications without aneurysmal dilatation. Normal appearance the IVC. LYMPH NODES: Extensive retroperitoneal adenopathy is noted. Many of the lymph nodes have a rim enhancing capsule, and the central necrosis. Pattern is suspicious of metastatic adenopathy. Reference lymph nodes include a LEFT periaortic kika mass measuring 2.5 x 2.0 cm (series 2: Image 52, additional aortocaval adenopathy measuring 1.2 x 1.2 cm (series 2: Image 56). RIGHT paracaval adenopathy measuring 1.2 x 1.3 cm (series 2: Image 57. Additional RIGHT pelvic sidewall adenopathy measures 2.3 x 2.3 cm (series 2: Image 85. Additional omental node measures 1.8 x 1.7 cm (series 2: Image 53), and adjacent to the hepatic flexure of the colon. PERITONEAL CAVITY: No ascites noted ANTERIOR ABDOMINAL WALL: Normal, no hernia identified. BONES AND SOFT TISSUES: The skeleton shows no evidence for fractures or destructive lesions. Diffuse lumbar spondylosis is present. LEFT hip arthroplasty is present. OTHER: None CT/Abdomen/Pelvis W IV Cont ONLY IMPRESSION: 1. Circumferential thickening of the ascending colon, this is nonspecific in appearance. Area of inflammatory changes versus circumferential mass without obstruction are considerations. 2. No bowel obstruction or diverticulitis. 3. No evidence of appendicitis. 4. Coarse nonobstructing calcification in the lower pole of the LEFT kidney. No evidence of obstructive uropathy. 5. Hepatic steatosis without hepatic masses. No evidence cholelithiasis. 6. Extensive retroperitoneal and mesenteric adenopathy, findings are suspicious of metastatic disease. RIGHT pelvic sidewall adenopathy also present. 7. No pulmonary nodules or masses identified in the visualized lower lungs. 8. No mass is identified involving the adrenal glands. Electronically Signed: Javed Moore MD at 22:04 EDT ,
[2024-02-02 21:10] LABS: Anisocytosis RARE; Macrocytosis RARE; Platelet Estimate SLT DEC (ADEQ); Red Cell Morphology N CHROM NORMAL (NORM C&C)
[2024-02-02 22:46] VITALS: BP 122/61; PULSE 80; RESP 16; TEMP 36.6; O2SAT 99
== END 2024-02-02 22:47 | disposition home or self-care (01) ==
PROVIDERS: Emergency Provider Emergency Medicine; Visit Provider Emergency Medicine
DX: G89.18 Other acute postprocedural pain (principal); R59.0 Localized enlarged lymph nodes; Z85.43 Personal history of malignant neoplasm of ovary
CPT/HCPCS: 74177; 80048; 85025; 85610; 85730; 99283; J7040; Q9967; A4216

== ENCOUNTER → 2024-03-31 | Outpatient (CLI) | payer MEDICARE, SELFPAY | END | disposition home or self-care (01) | DX: C56.9 Malignant neoplasm of unspecified ovary (principal); Z92.859 Personal history of cellular therapy, unspecified | CPT/HCPCS: 94642 ==

== ENCOUNTER → 2024-05-03 | Outpatient (CLI) | payer MEDICARE, SELFPAY ==
[2024-05-03] MEDS: Pentamidine Isethionate 300 MG, Water For Injection,Sterile 6 ML INHALATION (10:39)
== END | disposition home or self-care (01) ==
LOC: PSN 10:11
DX: C56.9 Malignant neoplasm of unspecified ovary (principal); Z92.859 Personal history of cellular therapy, unspecified
CPT/HCPCS: 94642